=== PATIENT | male | born 1960 | race Caucasian/White ===

== ENCOUNTER 2018-05-15 12:32 | Outpatient (CLI) | payer OTHER ==
--- NOTE | 2018-05-16 07:30 | RAD ---
CHEST TWO VIEWS: 05/15/18 Comparison is made with the 04/06/18 study as well as a 02/25/18 chest film. There has been improvement in the left upper lobe infiltrate over the interval. There is a spiculated mass type density whose central portion measures 1.7 cm in this region. I do not see any sign of it on the February film. By itself, it would suggest a spiculated mass. Given an interval under two months, one would presume that it is actually residual from the recent infection. Nevertheless, it should be followed until complete resolution. The lungs are hyperexpanded as usual. There are no congestive changes or signs of cardiomegaly. No ef fusions are seen. IMPRESSION: 1. COPD with 1.7 cm spiculated mass density of the left upper lobe. See discussion above. 2. Improvement of the left upper lobe infiltrate since the prior exam. Code T POS: HOME
== END 2018-05-15 12:33 | disposition home or self-care (01) ==
LOC: BURRAD 12:32
PROVIDERS: ATTEND Family Medicine
DX: J18.9 Pneumonia, unspecified organism (principal); R91.8 Other nonspecific abnormal finding of lung field
CPT/HCPCS: 71046

== ENCOUNTER 2019-01-03 18:32 | Emergency (ER) | payer OTHER ==
[2019-01-03 18:48] LABS: #Basophils 0.1 thou/uL (0.0-0.2); #Eosinphils 0.3 thou/uL (0.0-0.7); #Lymphocytes 1.5 thou/uL (1.20-3.40); #Monocytes 0.8 thou/uL (0.11-0.59); #Neutrophils 6.7 thou/uL (1.40-6.50); %Eosinophils 3.3 % (0.0-10.0); %Lymphocytes 16.2 % (21.0-51.0); %Monocytes 8.5 % (0.0-10.0); Hemoglobin 14.7 g/dL (14.0-18.0); Mean Corpuscular HGB CONC 32.6 g/dL (32.0-36.0); Mean Corpuscular Volume 88.7 fL (78.0-98.0); Mean Platelet Volume 8.2 fL (7.4-10.4); Platelet Count 182 thou/uL (130-400); Red Blood Cell (RBC) Count 5.07 mill/uL (4.70-6.10); White Blood Cell (WBC) Count 9.4 thou/uL (4.8-10.8)
[2019-01-03 18:58] LABS: INR-International Normal Ratio 1.1; PTT 29.5 SEC (22.9-36.1); Prothrombin Time 13.9 SEC (12.0-14.7)
[2019-01-03] MEDS ORDERED: Fentanyl 100 MCG/2 ML VIAL ONE (19:04)
[2019-01-03 19:05] LABS: ALT (SGPT) 26 U/L (8-55); AST (SGOT) 22 U/L (5-34); Alkaline Phosphatase 91 U/L (40-150); Anion Gap 14 mmol/L (10-20); BUN (Urea Nitrogen) 12 mg/dL (8.4-25.7); Bilirubin, Total 0.7 mg/dL (0.2-1.2); Calc. Creatinine Clearance 0 mL/min (70-130); Calcium 9.4 mg/dL (7.8-10.44); Carbon Dioxide 31 mmol/L (22-29); Chloride 99 mmol/L (98-107); Estimated GFR-MDRD 55; Globulin 2.7 g/dL (2.4-3.5); Glucose 106 mg/dL (70-105); Lipase 46 U/L (8-78); Protein, Total 6.7 g/dL (6.0-8.3); Sodium 140 mmol/L (136-145)
[2019-01-03] MEDS ORDERED: Aspirin Chewable 81 MG TAB ONE (19:58)
[2019-01-03] MEDS ORDERED: Enoxaparin Sodium 100 MG/ML SYRINGE ONE (19:58)
[2019-01-03] MEDS ORDERED: cefTRIAXone\\ROCEPHIN 2 GM VIAL ONE (19:58)
[2019-01-03] MEDS ORDERED: Albuterol Sulfate 1.25 MG/3 ML NEB ONE (19:58)
[2019-01-03] MEDS ORDERED: Morphine 4 MG/ML VIAL ONE (19:58)
[2019-01-03] MEDS ORDERED: methylPREDNISolone Sod Succ/PF 125 MG/2 ML VIAL ONE (19:58)
--- NOTE | 2019-01-03 21:32 | RAD ---
PORTABLE CHEST 01/03/19 An AP portable film at 1841 is compared with a 09/11/[address] [facility] . The heart is normal in size. COPD is noted as usual. There is relative hyperlucency to the right uppe r lobe region, presumably bullous disease. There is some interstitial prominence in the lower lungs, particularly on the left side. There is no acute infiltrate seen. There is no vascular congestion, ed loyd, or pleural effusion. IMPRESSION: Emphysematous changes but no acute finding. POS: HOME
--- NOTE | 2019-01-03 21:47 | CT ---
CT ANGIO OF THE CHEST 01/03/[address] of the chest was performed for evaluation of chest pain. There is also asymmetry of pulses between the left upper extremity and the right. Axial slices were acquired after a bolus of contrast, then various oblique MIP reconstructions were done through the chest. There is excellent opacification of the pulmonary arteries. No filling defects were seen within them to suggest emboli. There is no sign of aortic aneurysm or dissection. The left vertebral artery originates from the aortic arch. The left subclavian artery originates but quickly becomes thrombosed a centimeter or two after its origin from the aorta. There is some flow i nto the left subclavian artery but it is reduced compared to the right. There is no sign of pericardi al effusion. No mediastinal mass or adenopathy was seen. There is a lucency in the left lobe of the thyroid gland. An elective thyroid ultrasound to look for mass or cyst would be prudent. There is severe fibroemphysematous changes throughout the lungs with prominence of the interstitium i n many areas, more so in the left lung than the right, especially the left upper lobe. There is a lar ge bulla present in the right apex. No acute bony abnormalities were seen. Scans into the upper abdom en showed no acute changes in the visible upper abdominal organs. The celiac and SMA fill normally. T he right renal artery is smaller than the left. There may actually be two accessory right renal arter ies. IMPRESSION: 1. No evidence of pulmonary embolism or aortic dissection. 2. 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 Ultimately some contrast does get around it, though it is less than the opposite jessica e. 3. 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 4. Severe COPD with large right apical bulla. 5. Possible mass in the left lobe of the thyroid gland. Elective ultrasound recommended. The findings discussed with Dr. Zepeda at 1947 on 01/03/19. 1. POS: HOME
== END 2019-01-03 20:55 | disposition home or self-care (01) ==
LOC: BURERS 18:32
DX: S22.32XA Fracture of one rib, left side, initial encounter for closed fracture (principal); I74.9 Embolism and thrombosis of unspecified artery; J43.9 Emphysema, unspecified; F32.9 Major depressive disorder, single episode, unspecified; Z87.891 Personal history of nicotine dependence; Z79.51 Long term (current) use of inhaled steroids; Z79.899 Other long term (current) drug therapy; X50.9XXA Other and unspecified overexertion or strenuous movements or postures, initial encounter
CPT/HCPCS: 36415; 71045; 71275; 80053; 82150; 83690; 83880; 84484; 85025; 85379; 85610; 85730; 93005; 94640; 94760; 96361; 96365; 96372; 96375; J0696; J1650; J2270; J2930; J3010; J7620